=== PATIENT | male | born 1945 | race Caucasian/White ===

== ENCOUNTER → 2022-11-22 | Outpatient (CLI) | payer MEDICARE ==
--- NOTE | 2022-11-22 15:40 | Diagnostic Imaging Report ---
Indication: Lump in left breast. No prior mammograms available for comparison. Unilateral left 2-D and 3-D diagnostic mammography was performed with with CAD. The current study was also evaluated with a Computer Aided Detection (CAD) system. There is a mass in the retroareolar left breast approximately 19 mm in size. There are several small calcifications within the nodule as well. No other masses are seen. Left axilla is unremarkable. IMPRESSION: BI-RADS Category 0 Retroareolar mass. Further evaluation with ultrasound is recommended and will be performed today. ACR BI-RADS Category 0: Incomplete. (Needs additional imaging evaluation). Result letter will be mailed to the patient. Note: At least 10% of breast cancer is not imaged by mammography. Dictated by: Dictated on workstation # [id number]
--- NOTE | 2022-11-22 18:51 | Diagnostic Imaging Report ---
INDICATION: Left breast lump. COMPARISON: Correlation is made with diagnostic mammogram from earlier the same day. EXAMINATION: Sonographic interrogation of the area of lump in the retroareolar left breast was performed. FINDINGS: There is a hypoechoic somewhat lobulated mass at the 12:00 retroareolar left breast measuring 1.5 x 1.7 x 1.3 cm. This does show some internal vascularity. There is also internal microcalcifications. This is concerning for a breast malignancy. No other breast mass is seen. Sonographic interrogation of the left axilla does show several small lymph nodes with fatty hilum. There is a slightly larger lymph node measuring 1.9 x 1.6 x 1.5 cm. A pathologic node cannot be entirely excluded. IMPRESSION: Hypoechoic solid nodule in retroareolar left breast corresponding to the mammographic and palpable abnormality. This is concerning for a small breast malignancy and tissue sampling is recommended. In addition, there is an enlarged left axillary lymph node. Tissue sampling of the enlarged left axillary lymph node would be recommended as well. Both of these would be amenable to ultrasound-guided approach. ACR BI-RADS Category 4: Suspicious abnormality. Result letter will be mailed to the patient. Note: At least 10% of breast cancer is not imaged by mammography. Dictated by: Dictated on workstation # [id number]
== END ==
LOC: RAD 13:49
PROVIDERS: ATTEND Internal Medicine
DX: N63.25 Unspecified lump in the left breast, overlapping quadrants (principal); R59.9 Enlarged lymph nodes, unspecified
CPT/HCPCS: 76641; 77065; G0279

== ENCOUNTER → 2022-11-27 | Outpatient (CLI) | payer MEDICARE ==
[~2022-11-27] VITALS: Ht 172.7 cm; Wt 85.9 kg
[~2022-11-27] MED LIST: LIDOCAINE 1% INJ 10 ML VIAL INJ ONE; LIDOCAINE 1% INJ 10 ML VIAL ONE
--- NOTE | 2022-11-27 12:01 | Diagnostic Imaging Report ---
INDICATION: Left breast mass. Patient presents for ultrasound-guided biopsy. Patient brought to the sonographic suite and placed on the table in supine position. Ultrasound imaging of the left breast was performed to evaluate appropriate entry site. Left breast was then prepped and draped in usual sterile fashion. Small amount of 1% lidocaine was utilized for local anesthesia. A total 4 core biopsies were obtained of the hypoechoic mass at the 12 o'clock retroareolar left breast utilizing 14-gauge Achieve needle. A marker clip was then deployed. Hemostasis was obtained using manual compression. Following the breast biopsy, left axilla was evaluated. No enlarged lymph nodes or suspicious lymph nodes were visualized on today's study. Left axillary node biopsy was then performed. IMPRESSION: Successful ultrasound-guided left breast mass biopsy. Pathology results are currently pending. Dictated by: Dictated on workstation # [id number]
== END ==
LOC: RAD 09:16
PROVIDERS: ATTEND Internal Medicine
DX: N63.20 Unspecified lump in the left breast, unspecified quadrant (principal)
CPT/HCPCS: 19083

== ENCOUNTER → 2022-12-18 | Outpatient (CLI) | payer MEDICARE ==
[~2022-12-18] MED LIST changes: +CATHETER FLUSH 10 ML SYR IVP PRN; -LIDOCAINE 1% INJ 10 ML VIAL INJ ONE; -LIDOCAINE 1% INJ 10 ML VIAL ONE
--- NOTE | 2022-12-18 13:40 | Diagnostic Imaging Report ---
Indication: Initial staging malignant neoplasm in a male breast, 12:00 retroareolar left breast. Serum blood glucose level time injection is 103 mg/dL. Patient was administered 9.5 mCi F-18 FDG intravenously left antecubital location and PET imaging was performed from the top skull to mid thighs. Noncontrast CT was also performed for attenuation correction and anatomic correlation. No prior PET/CT studies are available for comparison. There is symmetric activity throughout the brain. Soft tissues of the neck are unremarkable. Hypermetabolic lesion in the retroareolar left breast is noted consistent with known breast malignancy. This does straighten SUV max of 7.9. There is a lymph node in the left axilla which does show some hypermetabolism with SUV max of 3.9. The right axilla is unremarkable. No definite mediastinal or hilar hypermetabolism is identified. No pulmonary parenchymal hypermetabolism is identified. Imaging of the abdomen and pelvis demonstrates physiologic activity throughout the gastrointestinal and genitourinary tract. No definite hypermetabolic lymphadenopathy is identified. There are numerous areas of hypermetabolism involving osseous structures. There is abnormal uptake in the sternum as well as small area in the lateral portion of the right scapula. There is a small focus of uptake in the left pedicle of the mid thoracic thoracic vertebrae. There is also some uptake in the left pedicle at approximately L3. There is also some uptake in the right pedicle at L4 as well as several abnormal foci involving bilateral iliac bones and the right ischium. The most intense uptake is involving the right ischium with an SUV max of 10.8. IMPRESSION: 1. Primary left breast malignancy retroareolar region. There is a hypermetabolic lymph node left axilla concerning for a metastatic lesion. No other metastatic lymphadenopathy is identified. However, there are numerous abnormal foci within osseous structures demonstrating hypermetabolism concerning for osseous metastatic disease. Dictated by: Dictated on workstation # [id number]
== END ==
LOC: RAD 08:36
PROVIDERS: ATTEND Internal Medicine Hematology & Oncology
DX: C50.929 Malignant neoplasm of unspecified site of unspecified male breast (principal)
CPT/HCPCS: 78815; 82947; A9552

== ENCOUNTER 2022-12-20 09:41 | Outpatient (RCR) | payer MEDICARE ==
[2022-12-04 16:34] LABS: BASOPHILS # (AUTO) 0.1 10^3/uL (0.0-0.1); BASOPHILS % (AUTO) 1 % (0-10); EOSINOPHILS # (AUTO) 0.4 10^3/uL (0.0-0.3); EOSINOPHILS % (AUTO) 4 % (0-10); HEMATOCRIT 43 % (40-54); HEMOGLOBIN 14.9 g/dL (13.3-17.7); LYMPHOCYTES % (AUTO) 21 % (12-44); MEAN CORPUSCULAR HEMOGLOBIN 32 pg (25-34); MEAN CORPUSCULAR HGB CONC 35 g/dL (32-36); MEAN CORPUSCULAR VOLUME 92 fL (80-99); MEAN PLATELET VOLUME 9.3 fL (9.0-12.2); MONOCYTES # (AUTO) 0.7 10^3/uL (0.0-1.0); MONOCYTES % (AUTO) 7 % (0-12); NEUTROPHILS # (AUTO) 6.7 10^3/uL (1.8-7.8); NEUTROPHILS % (AUTO) 68 % (42-75); PLATELET COUNT 213 10^3/uL (130-400); WHITE BLOOD COUNT 9.9 10^3/uL (4.3-11.0)
[2022-12-04 17:02] LABS: ALBUMIN 4.2 GM/DL (3.2-4.5); BILIRUBIN,TOTAL 0.7 MG/DL (0.1-1.0); CALCIUM 9.2 MG/DL (8.5-10.1); CREATININE SERUM 1.15 MG/DL (0.60-1.30); POTASSIUM 3.8 MMOL/L (3.6-5.0); TOTAL PROTEIN 7.2 GM/DL (6.4-8.2)
== END 2022-12-21 | disposition home or self-care (01) ==
LOC: ONC 09:41
PROVIDERS: ATTEND Internal Medicine Hematology & Oncology
DX: C50.922 Malignant neoplasm of unspecified site of left male breast (principal)
CPT/HCPCS: 80053; 85025; G0463; 86300; 99204; 99214

== ENCOUNTER 2023-01-31 10:36 | Outpatient (RCR) | payer MEDICARE ==
[2023-01-18 09:50] VITALS: BP 118/74
[~2023-01-31 10:36] MED LIST changes: -CATHETER FLUSH 10 ML SYR IVP PRN; +FULVESTRANT 250 MG/5 ML (FASLODEX) IM SCH
[2023-01-31 10:55] LABS: BASOPHILS # (AUTO) 0.1 10^3/uL (0.0-0.1); BASOPHILS % (AUTO) 1 % (0-10); EOSINOPHILS # (AUTO) 0.4 10^3/uL (0.0-0.3); EOSINOPHILS % (AUTO) 6 % (0-10); HEMATOCRIT 43 % (40-54); HEMOGLOBIN 14.9 g/dL (13.3-17.7); LYMPHOCYTES # (AUTO) 1.7 10^3/uL (1.0-4.0); LYMPHOCYTES % (AUTO) 23 % (12-44); MEAN CORPUSCULAR HEMOGLOBIN 32 pg (25-34); MEAN CORPUSCULAR HGB CONC 35 g/dL (32-36); MEAN CORPUSCULAR VOLUME 91 fL (80-99); MEAN PLATELET VOLUME 9.3 fL (9.0-12.2); MONOCYTES # (AUTO) 0.6 10^3/uL (0.0-1.0); MONOCYTES % (AUTO) 9 % (0-12); NEUTROPHILS # (AUTO) 4.5 10^3/uL (1.8-7.8); NEUTROPHILS % (AUTO) 62 % (42-75); PLATELET COUNT 223 10^3/uL (130-400); WHITE BLOOD COUNT 7.3 10^3/uL (4.3-11.0)
[2023-01-31 11:16] LABS: ALBUMIN 4.2 GM/DL (3.2-4.5); BILIRUBIN,TOTAL 0.8 MG/DL (0.1-1.0); CALCIUM 9.1 MG/DL (8.5-10.1); CREATININE SERUM 1.01 MG/DL (0.60-1.30); POTASSIUM 4.3 MMOL/L (3.6-5.0); TOTAL PROTEIN 7.6 GM/DL (6.4-8.2)
== END 2023-02-20 | disposition home or self-care (01) ==
LOC: ONC 10:36
PROVIDERS: ATTEND Internal Medicine Hematology & Oncology
DX: C50.922 Malignant neoplasm of unspecified site of left male breast (principal)
CPT/HCPCS: 80053; 83735; 85025; 96372; G0463; 36415; 99214

== ENCOUNTER → 2023-03-07 | Outpatient (CLI) | payer MEDICARE ==
[~2023-03-07] MED LIST changes: -FULVESTRANT 250 MG/5 ML (FASLODEX) IM SCH; +GADOTERATE 0.5 MMOL/ML (CLARISCAN) 20 ML VIAL IV ONE
--- NOTE | 2023-03-07 10:23 | Diagnostic Imaging Report ---
PROCEDURE: MRI pelvis with and without contrast. TECHNIQUE: Multiplanar, multisequence MRI of the pelvis was performed with and without contrast. INDICATION: History of breast carcinoma history of osseous metastasis and lymph node metastasis. Burning bilateral femurs. Pain EXAMINATION: Pelvis MRI with and without contrast 03/07/2023 Correlation made to a PET/CT from 12/18/2022 FINDINGS: Innumerable heterogeneous lesions scattered throughout the osseous structures of the pelvis and visualized lumbar spine. And to a lesser degree in the visualized proximal femurs. The larger lesions include an abnormality in the left ilium abutting the sacroiliac joint measuring 2.5 x 3.5 cm on coronal imaging. Similar larger process is seen in the right ilium measuring 8 x 2.5 cm. Multiple large areas noted within the right sacral alar. Postcontrast imaging demonstrates diffuse enhancement of these lesions consistent with a diffuse osseous metastasis. Multiple bilateral acetabular lesions noted. No definite fractures visualized. A prominent abnormality incompletely imaged seen within the right aspect of the L5 vertebral body extending into the transverse process and pedicle. No soft tissue components seen associated with the above-mentioned lesions. The visualized intra-pelvic structures demonstrate marked heterogeneity of the prostate gland with several bilateral lesions noted nonspecific on this MRI. If there is concern for prostate carcinoma dedicated imaging of the prostate gland and correlation with PSA and physical examination recommended. IMPRESSION: 1. Innumerable metastatic lesions throughout the osseous structures described above. No definite associated pathologic fractures. If there is concern for cortical disruption CT may be useful. 2. Heterogeneity and multiple lesions seen throughout the prostate gland see above discussion and clinical correlation recommended. Dictated on workstation # [id number]
--- NOTE | 2023-03-07 12:49 | Diagnostic Imaging Report ---
PROCEDURE: MRI lumbar spine with and without contrast. TECHNIQUE: Multiplanar, multisequence MRI of the lumbar spine was performed with and without contrast. INDICATION: Back pain. History of breast cancer. COMPARISON: 12/18/2022. FINDINGS: 5 lumbar type vertebral bodies are visualized with the last well-formed disc space designated L5-S1. No acute fracture or dislocation is seen in the lumbar spine. Scattered focal T1 hypointense lesions are seen throughout the lumbar spine which demonstrate postcontrast enhancement. The largest lesion is seen in the posterior aspect of the L5 vertebral body measuring 1.6 x 1.1 cm and 2.0 cm craniocaudal. Bilateral pelvic lesions are partially visualized. The conus terminates at the L1 level. No masses are seen associated with the conus or nerve roots of the cauda equina. No epidural collections are identified. Multilevel degenerative changes are seen in the lumbar spine with disc bulges, facet hypertrophy, and buckling of the ligamentum flavum. T12-L1: No significant spinal canal or foraminal stenosis. L1-L2: No significant spinal canal or foraminal stenosis. L2-L3: Facet hypertrophy and buckling of the ligamentum flavum results in [id number] spinal canal narrowing and moderate bilateral foraminal stenosis. L3-L4: Broad-based disc bulge, facet hypertrophy, and buckling of the ligamentum flavum results in severe spinal canal stenosis and moderate bilateral foraminal stenosis. L4-L5: Broad-based disc bulge, facet hypertrophy, and buckling of the ligamentum flavum results in severe spinal canal stenosis and [id number] bilateral foraminal stenosis. L5-S1: Broad-based disc bulge, facet hypertrophy, and buckling of the ligamentum flavum results in mild spinal canal narrowing and moderate right and [id number] left foraminal stenosis. Paravertebral soft tissues are unremarkable. IMPRESSION: 1. 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 Lesions are also seen within the visualized pelvis. No pathologic fractures are seen. Recommend continued close follow-up. 2. Multilevel degenerative changes in the lumbar spine, greatest at L3-L4 and L4-L5. 3. No abnormal enhancement within the conus or nerve roots of the cauda equina. No epidural collections. Dictated by: Dictated on workstation # [id number]
== END ==
LOC: RAD 07:46
PROVIDERS: ATTEND Internal Medicine Hematology & Oncology
DX: C79.51 Secondary malignant neoplasm of bone (principal); Z85.3 Personal history of malignant neoplasm of breast; M47.816 Spondylosis without myelopathy or radiculopathy, lumbar region
CPT/HCPCS: 72158; 72197

== ENCOUNTER 2023-03-14 10:22 | Outpatient (RCR) | payer MEDICARE ==
[2023-01-18 09:50] VITALS: BP 118/74
[2023-02-26 09:31] LABS: BASOPHILS # (AUTO) 0.1 10^3/uL (0.0-0.1); BASOPHILS % (AUTO) 1 % (0-10); EOSINOPHILS # (AUTO) 0.4 10^3/uL (0.0-0.3); EOSINOPHILS % (AUTO) 6 % (0-10); HEMATOCRIT 44 % (40-54); HEMOGLOBIN 14.8 g/dL (13.3-17.7); LYMPHOCYTES # (AUTO) 1.6 10^3/uL (1.0-4.0); LYMPHOCYTES % (AUTO) 25 % (12-44); MEAN CORPUSCULAR HEMOGLOBIN 31 pg (25-34); MEAN CORPUSCULAR HGB CONC 34 g/dL (32-36); MEAN CORPUSCULAR VOLUME 92 fL (80-99); MEAN PLATELET VOLUME 9.3 fL (9.0-12.2); MONOCYTES # (AUTO) 0.5 10^3/uL (0.0-1.0); MONOCYTES % (AUTO) 7 % (0-12); NEUTROPHILS # (AUTO) 3.8 10^3/uL (1.8-7.8); NEUTROPHILS % (AUTO) 60 % (42-75); PLATELET COUNT 196 10^3/uL (130-400); WHITE BLOOD COUNT 6.4 10^3/uL (4.3-11.0)
[2023-02-26 09:51] LABS: ALBUMIN 4.2 GM/DL (3.2-4.5); BILIRUBIN,TOTAL 0.9 MG/DL (0.1-1.0); CALCIUM 8.8 MG/DL (8.5-10.1); CREATININE SERUM 0.9 MG/DL (0.60-1.30); POTASSIUM 4.3 MMOL/L (3.6-5.0); TOTAL PROTEIN 7.3 GM/DL (6.4-8.2)
[~2023-03-14 10:22] MED LIST changes: +FULVESTRANT 250 MG/5 ML (FASLODEX) IM SCH; -GADOTERATE 0.5 MMOL/ML (CLARISCAN) 20 ML VIAL IV ONE
[2023-03-14 11:32] LABS: BASOPHILS % (AUTO) 1 % (0-10); EOSINOPHILS # (AUTO) 0.4 10^3/uL (0.0-0.3); EOSINOPHILS % (AUTO) 6 % (0-10); HEMATOCRIT 47 % (40-54); HEMOGLOBIN 15.9 g/dL (13.3-17.7); LYMPHOCYTES # (AUTO) 1.7 10^3/uL (1.0-4.0); LYMPHOCYTES % (AUTO) 25 % (12-44); MEAN CORPUSCULAR HEMOGLOBIN 31 pg (25-34); MEAN CORPUSCULAR HGB CONC 34 g/dL (32-36); MEAN CORPUSCULAR VOLUME 91 fL (80-99); MEAN PLATELET VOLUME 9.2 fL (9.0-12.2); MONOCYTES # (AUTO) 0.5 10^3/uL (0.0-1.0); MONOCYTES % (AUTO) 7 % (0-12); NEUTROPHILS # (AUTO) 4.2 10^3/uL (1.8-7.8); NEUTROPHILS % (AUTO) 61 % (42-75); PLATELET COUNT 227 10^3/uL (130-400); WHITE BLOOD COUNT 6.9 10^3/uL (4.3-11.0)
[2023-03-14 11:54] LABS: ALBUMIN 4.3 GM/DL (3.2-4.5); BILIRUBIN,TOTAL 0.7 MG/DL (0.1-1.0); CALCIUM 9.3 MG/DL (8.5-10.1); CREATININE SERUM 0.88 MG/DL (0.60-1.30); POTASSIUM 4.3 MMOL/L (3.6-5.0); TOTAL PROTEIN 7.9 GM/DL (6.4-8.2)
== END 2023-03-22 | disposition home or self-care (01) ==
LOC: ONC 10:22
PROVIDERS: ATTEND Internal Medicine Hematology & Oncology
DX: Z51.11 Encounter for antineoplastic chemotherapy (principal); C50.922 Malignant neoplasm of unspecified site of left male breast
CPT/HCPCS: 80053; 85025; 96402; G0463; 36415; 86300; 99214

== ENCOUNTER → 2023-03-26 | Outpatient (CLI) | payer MEDICARE ==
--- NOTE | 2023-03-26 11:14 | Diagnostic Imaging Report ---
EXAMINATION: Ultrasound of the left breast. INDICATION: Left breast carcinoma. FINDINGS: The previous left breast ultrasound exam of 11/22/2022 noted a hypoechoic somewhat lobulated mass in the 12 o'clock position of the retroareolar region of the left breast. This mass measured 1.5 x 1.7 x 1.3 cm. The mass was subsequently biopsied using ultrasound guidance on 11/27/2022 and a diagnosis of malignancy was established. On this exam, the mass is again identified and does measure somewhat smaller than on the prior study. The mass is now estimated to be 1.5 x 1.3 x 1.3 cm. The previous study also identified several small lymph nodes with fatty milana in the left axilla. The largest of these lymph nodes measured 1.9 x 1.6 x 1.5 cm. On this exam, there is only a single enlarged lymph node evident. This node measures 2.1 x 1.2 cm. This node appears to be primarily replaced by fat and the cortex is quite thin. There is no evidence for a replacement process involving the thinned cortex. IMPRESSION: 1. The mass in the left breast seen previously is minimally smaller than on the prior exam. 2. The lymph nodes in the left hilum have diminished. The largest lymph node appears to be predominantly replaced by fat and there is no abnormality of the cortex of this lymph node to suggest neoplastic disease. 3. These results were discussed with Dr. Toribio. ACR CATEGORY 6: Known diagnosis of malignancy. Dictated by: Dictated on workstation # [id number]
== END ==
LOC: RAD 08:47
PROVIDERS: ATTEND Internal Medicine Hematology & Oncology
DX: C50.929 Malignant neoplasm of unspecified site of unspecified male breast (principal)